=== PATIENT | female | born 1985 | race Hispanic/Latino ===

== ENCOUNTER 2021-12-01 14:22 | Emergency (ER) | payer BC ==
[~2021-12-01] VITALS: Ht 154.9 cm; Wt 81.6 kg
[2021-12-01] MEDS ORDERED: ACETAMINOPHEN 500 MG TABLET ONE (15:28)
[2021-12-01] MEDS ORDERED: ONDANSETRON ODT 4MG TAB ONE (15:28)
[2021-12-01] MEDS ORDERED: ACETAMINOPHEN 500 MG TABLET PO ONE (15:30)
[2021-12-01] MEDS ORDERED: ONDANSETRON ODT 4MG TAB SL ONE (15:30)
[2021-12-01 16:12] VITALS: BP 116/76
[2021-12-01] MEDS ORDERED: ONDA4TAB10 PO (17:05)
== END 2021-12-01 17:15 | disposition home or self-care (01) ==
LOC: EDH 14:22
DX: S06.0X0A Concussion without loss of consciousness, initial encounter (principal); Z98.890 Other specified postprocedural states; Z91.018 Allergy to other foods; W51.XXXA Accidental striking against or bumped into by another person, initial encounter; Y93.89 Activity, other specified; Y92.89 Other specified places as the place of occurrence of the external cause; Y99.8 Other external cause status
CPT/HCPCS: 70450